=== PATIENT | female | born 1985 | race Caucasian/White ===

== ENCOUNTER 2017-01-20 15:30 | Emergency (ER) | payer OTHER ==
--- NOTE | ~2017-01-20 | US98 ---
[facility] A Service of [facility] / [facility] RADIOLOGY TEXT RESULTS PATIENT: EVERARDO RUSSO LOCATION: SED : 89 UNIT #: [id number] AGE: [address]: Tommy Lockett MD SEX: F ORDER DR: [id number] [address] [address] [id number] MR#: [id number] Acc #: [id number] NAME: EVERARDO RUSSO : 1985 SEX: F STUDY DATE/TIME: 01/20/2017 16:06 UNIT: SED ROOM: STUDY DESCRIPTION: US Pelvic Non-OB Complete Attending Physician: Tommy Lockett M.D. Ordering Physician: Tommy Lockett M.D. Primary Care Physician: [facility], [facility]. MEDICAL IMAGING REPORT This report is preliminary unless electronic signature is present. EXAM Transvaginal pelvic ultrasound. DATE OF EXAM 01/20/2017 HISTORY 32-year-old female with bleeding and pain with period for 1 week, worse over past 2 days. Negative beta HCG. Additional history states pain for [address] abdomen and pelvis with contrast 01/23/2016. No prior pelvic ultrasound at this institution for comparison. FINDINGS The uterus measures 9.4 x 4.4 x 4.9 cm. Endometrial bilayer thickness is within normal limits, 5 mm. No focal endometrial or myometrial abnormality is identified. No pelvic free fluid is evident. The right ovary measures 2 x 4.3 x 1.8 cm, and the left ovary measures 2.1 x 3.8 x 2.3 cm. Both ovaries demonstrate color flow. No pelvic free fluid is identified. IMPRESSION Normal pelvic ultrasound. Normal sonographic appearance of the uterus, endometrium, and ovaries. Dictated by... Carolyne Iglesias M.D. [facility] A Service [facility] RADIOLOGY TEXT RESULTS PATIENT: EVERARDO RUSSO LOCATION: SED : 87 UNIT #: [id number] AGE: [address]: Tommy Lockett MD SEX: F ORDER DR: THIS IS AN ELECTRONICALLY VERIFIED REPORT Carolyne Iglesias M.D. at 01/21/2017 9:14 AM OMAR/lauren TD: 01/20/2017 20:38 JOB #: [id number] MEDICAL IMAGING REPORT
[2017-01-20 15:21] LABS: URINE SOURCE CLEAN CATCH
[2017-01-20 15:24] LABS: URINE APPEARANCE CLEAR; URINE BILIRUBIN NEG (NEG); URINE BLOOD 2+ (NEG); URINE COLOR YELLOW; URINE GLUCOSE NEG (NORM); URINE KETONE NEG (NEG); URINE LEUKOCYTE ESTERASE NEG (NEG); URINE NITRATE NEG (NEG); URINE PH 5.5 (5-8); URINE PROTEIN NEG (NEG); URINE SPECIFIC GRAVITY 1.025 (1.003-1.035); URINE UROBILINOGEN 0.2 MG/DL (NORM)
[2017-01-20 15:27] LABS: MICRO INDICATED? YES
[~2017-01-20 15:30] MED LIST: BENTYL10 MG PO; BENTYL20 MG PO; DIAZEPAM PO; DICYCLOMINE HCL20 MG PO; FEVERALL RC; FEVERALL650 MG/SUP RC; FLEXERIL PO; FLEXERIL10 MG PO; LORTAB 10/500 T1 TAB PO; LORTAB 5/500 TA1 TA1 PO; LORTAB 7.5-5001 TAB PO; LOVENOX40 MG/0.4 INJ; MEDROL4 MG/DOSE- PO; MOBIC PO; MORPHINE SULF IV; MOTRIN600 M1 PO; NO MEDICATIONS; PAIN RELIEF325 M1 PO; PHENERGAN PO; PHENERGAN SUPP25 M1 PR; PHENERGAN12.5 MG/0. IM; PHENERGAN25 MG PO; PREDNISONE PO; PRILOSEC PO; ROBAXIN500 MG PO; ROXICODONE5 MG PO; SUP RC; TRAMADOL HCL50 M1 PO; TYLENOL325 M1 PO; VOLTAREN75 MG PO; ZOFRAN ODT4 MG PO
[2017-01-20 15:37] LABS: CULTURE INDICATED? NO; URINE BACTERIA NEG (NEG); URINE RBC 0-2 /[HPF] (0-2); URINE WBC NEG /[HPF] (0-5)
[2017-01-20 15:38] LABS: URINE SQUAMOUS EPITHELIAL CELL FEW /[HPF]
== END 2017-01-20 17:01 | disposition home or self-care (01) ==
LOC: SED 15:30
PROVIDERS: Emergency Medicine
DX: N94.6 Dysmenorrhea, unspecified (principal); N92.0 Excessive and frequent menstruation with regular cycle; F17.200 Nicotine dependence, unspecified, uncomplicated; Z98.890 Other specified postprocedural states; Z90.49 Acquired absence of other specified parts of digestive tract; Z88.2 Allergy status to sulfonamides
CPT/HCPCS: 76830; 76856; 81003; 84703; 99284